=== PATIENT | female | born 1950 | race Caucasian/White ===

== ENCOUNTER → 2017-01-09 | Outpatient (CLI) | payer MEDICARE, OTHER ==
[~2017-01-09] MED LIST: ALDACTONE50 MG PO; ALEVE220 M1 PO; COUMADIN ** IA5 MG PO; LANOXIN (DIGI125 MCG PO; LEVOTHYROXINE50 MCG PO; LEXAPRO10 MG PO; LOVENOX 3030 MG/0.3 SUB-Q; MAGNESIUM400 MG PO; MEPHYTON (VITAMI5 MG PO; PAIN RELIEF500 M1 PO; PERCOCET 5-3251 EACH PO; SYMBICORT 16010.2 GM INH; TOPROL XL25 MG PO; VITAMIN D1000 UNIT PO; VITAMIN E400 UNI2 PO; ZESTRIL2.5 MG PO
== END | disposition disaster alternative care site (69) ==
LOC: GRAD 01-02 14:45
DX: M72.2 Plantar fascial fibromatosis (principal); M79.672 Pain in left foot; S96.812A Strain of other specified muscles and tendons at ankle and foot level, left foot, initial encounter; X58.XXXA Exposure to other specified factors, initial encounter

== ENCOUNTER 2017-01-14 06:12 | Day surgery (SDC) | payer MEDICARE, OTHER ==
[~2017-01-14] VITALS: Ht 152.4 cm; Wt 67.0 kg
--- NOTE | ~2017-01-14 | OR ---
[facility]GE[facility] 66 Y [address] ROOM: [place] [address] [place] [facility] [place]: 01/14/2017 OR/Procedure Report DISCHARGE DATE: FAMILY PHYSICIAN: Marianna Eng MD ATTENDING PHYSICIAN: KEYONNA PURI SURGEON: Keyonna Puri MD HEELER MACHINE: Ángel Harris PA-C. DATE OF PROCEDURE: 01/14/2017 PREOPERATIVE DIAGNOSIS: Symptomatic left foot chronic plantar fasciitis. POSTOPERATIVE DIAGNOSIS: Symptomatic left foot chronic plantar fasciitis. PROCEDURE PERFORMED: Left open plantar fascia release. ANESTHESIA: General endotracheal anesthesia and peripheral nerve block. ESTIMATED BLOOD LOSS: Minimal. TOURNIQUET: Left proximal thigh 250 mmHg. FLUIDS: See anesthesia report. SPECIMENS: None. COMPLICATIONS: None. DISPOSITION: Stable in PACU. COUNTS: All counts were correct. INDICATIONS: Ms. Roca is a 66-year-old female, who underwent the noted procedures above. The risks, benefits, and alternatives of pursuing a surgical intervention were discussed with the patient in detail. The patient elected to proceed with surgery as noted above. I marked the left lower extremity indicating the correct surgical site. Anesthesia was consulted for their perioperative evaluation of the patient. OPERATIVE REPORT IN DETAIL: The patient was taken from the holding area to the operating room. A time-out was performed. General endotracheal anesthesia was administered. A peripheral nerve block was placed by the Anesthesia team preoperatively. The patient was placed supine on the operating room table and all bony prominences were padded. A nonsterile tourniquet was placed in left proximal thigh over Webril and a U-drape was placed beneath it. PATIENT'S NAME: GISELLE ROCAEN Josseline [facility] AGE: 66 Y [address] ROOM: [place] [address] [place] [facility] [place]: 01/14/2017 OR/Procedure Report DISCHARGE DATE: FAMILY PHYSICIAN: Marianna Eng MD ATTENDING PHYSICIAN: KEYONNA PURI The left lower extremity was then prepped and draped in a sterile fashion. Time-out was performed and an Esmarch was used to exsanguinate the limb. I then turned my attention to the foot. A 1-inch surgical incision was made just distal to the insertion of the plantar fascia under the calcaneus. I sharply dissected through the skin and dissected with a dissecting scissors through the subcutaneous tissue down to the plantar fascia. Plantar fascia was thickened. Using a fresh 15-blade, I incised the plantar fascia. My mri assistant, Ángel Harris PA-C, placed a dorsiflexion moment on the foot to stretch the plantar fascia, after it was surgically transected. Using a 15- blade knife, I excised a portion of the plantar fascia to prevent the 2 ends from healing back to each other. A 0.5% Marcaine was used to imbibe the wound for local anesthetic purposes and was injected locally, as well. After few minutes, I copiously irrigated the wound with a normal sterile saline solution of a 5-bulb syringe. A layered closure began with 2-0 Vicryl, followed by a 3-0 Vicryl, and Prineo (Dermabond and mesh construct wound closure system) to approximate the skin. The Prineo was allowed to dry and the tourniquet was let down. Sterile dressings were placed in the form of Xeroform, followed by 4x4, and Webril. The tourniquet was let down. The patient was then placed into a well- padded short-leg splint with the ankle in neutral dorsiflexion. The patient was then transferred from the operating room table onto the stretcher and extubated. She was brought to the recovery room in stable condition. There were no intraoperative complications noted. Of note, my PA, Ángel Harris PA-C, played an integral role in the intraoperative care of this patient. This included preoperative positioning, intraoperative expert retraction, and closing and splinting functions. IMPRESSION: The patient is status post the noted procedure above. PLAN: The patient will be nonweightbearing on the left lower extremity in a splint. We have encouraged her to rest, ice, and elevate the foot going forward. Postoperative pain control be administered per routine. DVT prophylaxis will also be prescribed. The patient will be discharged home from the PACU, provided she meets PACU discharge criteria. She will follow up with me in the office in 2 weeks for first postoperative visit. PATIENT'S NAME: RAZ ROCA [facility] AGE: 66 Y [address] ROOM: [place] [address] [place] [facility] [place]: 01/14/2017 OR/Procedure Report DISCHARGE DATE: FAMILY PHYSICIAN: Marianna Eng MD ATTENDING PHYSICIAN: KEYONNA PURI MD FELICIANO WESTD/modl /[id number] d: 01/14/17916 t: 01/19/17921, OPERATIVE SUMMARY
[~2017-01-14 06:12] MED LIST changes: -LOVENOX 3030 MG/0.3 SUB-Q; -MEPHYTON (VITAMI5 MG PO; -PERCOCET 5-3251 EACH PO
[2017-01-14] MEDS ORDERED: MEPHYTON (VITAMI5 MG PO (07:04)
[2017-01-14 07:21] LABS: INR - (THERAPEUTIC) 1.8 (0.9-1.1); PROTIME 20.4 SECONDS (9.6-11.1)
[2017-01-14] MEDS ORDERED: LOVENOX 3030 MG/0.3 SUB-Q (09:34)
[2017-01-14] MEDS ORDERED: PERCOCET 5-3251 EACH PO (09:34)
== END 2017-01-14 10:35 | disposition disaster alternative care site (69) ==
LOC: GSDC 06:12 → GPOC 07:00 → GSDC 10:35
PROVIDERS: Orthopaedic Surgery Adult Reconstructive Orthopaedic Surgery
PROC: 0J8R0ZZ Division of Left Foot Subcutaneous Tissue and Fascia, Open Approach (ICD-10-PCS; principal; 2017-01-14)
DX: M72.2 Plantar fascial fibromatosis (principal); I34.0 Nonrheumatic mitral (valve) insufficiency; I48.2 Chronic atrial fibrillation; I07.1 Rheumatic tricuspid insufficiency; J45.30 Mild persistent asthma, uncomplicated; F41.9 Anxiety disorder, unspecified; M19.90 Unspecified osteoarthritis, unspecified site; E03.9 Hypothyroidism, unspecified; E78.1 Pure hyperglyceridemia; Z95.2 Presence of prosthetic heart valve; Z90.710 Acquired absence of both cervix and uterus; Z90.49 Acquired absence of other specified parts of digestive tract; Z98.890 Other specified postprocedural states; Z79.01 Long term (current) use of anticoagulants; Z79.899 Other long term (current) drug therapy
CPT/HCPCS: J0690; J2001; J7120